=== PATIENT | female | born 1995 | race Caucasian/White ===

== ENCOUNTER → 2019-02-07 | Outpatient (CLI) | payer BC, OTHER ==
--- NOTE | 2019-02-07 16:39 | Diagnostic Imaging Report ---
INDICATION: Anatomical survey. TECHNIQUE: Multiple real-time grayscale images were obtained over the gravid uterus. COMPARISON: None FINDINGS: There is a single living intrauterine in a breech presentation. Placenta is anterior. There is no previa. There is normal volume of amniotic fluid. The biometry correlates with gestational age of 20 weeks 1 day. Anatomical survey is unremarkable. This includes a four-chamber heart and three-vessel cord. Heart rate is 146 BPM and regular. Maternal adnexa is unremarkable. Biometrical measurements are as follows: Biparietal 4.63 cm, age 20 weeks 0 days. Head circumference 17.44 cm, age 20 weeks 0 days. Abdominal circumference 15.09 cm, age 20 weeks 3 days. Femur length 3.20 cm, age 20 weeks 0 days. Sonographic estimate age: 20 weeks 1 days. Sonographic estimated date of delivery: 06/26/2019. Estimated Weight: 334 gm (+/- 49 gm). LMP percentile: 45%. heart rate: 146 beats per minute. number: 1 of 1. IMPRESSION: Estimated weight is 334 g. Single living intrauterine with sonographically estimated gestational age of 20 weeks 1 day and estimated date of confinement of June 26, 2019. Dictated by: Dictated on workstation # [id number]
== END ==
LOC: RAD 14:34
PROVIDERS: ATTEND Nurse Practitioner Women's Health
DX: Z34.92 Encounter for supervision of normal pregnancy, unspecified, second trimester (principal); Z3A.20 20 weeks gestation of pregnancy
CPT/HCPCS: 76805

== ENCOUNTER 2019-06-21 09:37 | Inpatient (IN) | payer BC ==
[~2019-06-21] VITALS: Ht 157 cm; Wt 72.1 kg
[2019-06-21] VITALS (29 sets, daily range): BP systolic 88–139; BP diastolic 52–85
[2019-06-21] MEDS ORDERED: AMPICILLIN FOR IV USE 2,000 MG in WATER (STERILE) FOR INJECTION 14.8 ML IV SCH (09:53)
[2019-06-21] MEDS ORDERED: MINERAL OIL CONCENTRATE 99.9% 15 ML UDC TOP PRN (10:00)
--- OUTSIDE RECORDS SUMMARY | 2019-06-21 10:17 | XMS REPORT | Continuity of Care Document ---
Author Organization Unknown Address Unknown Phone Unavailable Allergies There is no data. Medications There is no data. Problems Date Dx Coded Attending Type Code Diagnosis Diagnosed By 02/28/2019 DAYA BURK APRN Ot Z34.92 ENCNTR FOR SUPRVSN OF NORMAL PREG, UNSP, 02/28/2019 DAYA BURK APRN Ot Z3A.20 20 WEEKS GESTATION OF Procedures There is no data. Results There is no data. Encounters ACCT No. Visit Date/Time Discharge Status Pt. Type Provider Facility Loc./Unit Complaint [id number] 02/07/2019 14:34:00 019 23:59:59 CLS Outpatient DAYA BURK APRN Via [facility] RAD
[2019-06-21] MEDS: D5 LR IV SOLUTION 1,000 ML IV SCH ×2 (10:21→20:56)
[2019-06-21 10:35] LABS: BASOPHILS % (AUTO) 0 % (0-10); EOSINOPHILS # (AUTO) 0.1 10^3/uL (0.0-0.3); EOSINOPHILS % (AUTO) 1 % (0-10); HEMATOCRIT 33 % (35-52); HEMOGLOBIN 11.4 G/DL (11.5-16.0); LYMPHOCYTES # (AUTO) 1.6 X 10^3 (1.0-4.0); LYMPHOCYTES % (AUTO) 19 % (12-44); MEAN CORPUSCULAR HEMOGLOBIN 31 PG (25-34); MEAN CORPUSCULAR HGB CONC 34 G/DL (32-36); MEAN CORPUSCULAR VOLUME 91 FL (80-99); MEAN PLATELET VOLUME 10.4 FL (7.4-10.4); MONOCYTES # (AUTO) 0.6 X 10^3 (0.0-1.0); MONOCYTES % (AUTO) 7 % (0-12); NEUTROPHILS # (AUTO) 6.3 X 10^3 (1.8-7.8); NEUTROPHILS % (AUTO) 72 % (42-75); PLATELET COUNT 287 10^3/uL (130-400); RED CELL DISTRIBUTION WIDTH 14.3 % (10.0-14.5); WHITE BLOOD COUNT 8.7 10^3/uL (4.3-11.0)
--- NOTE | 2019-06-21 10:40 | NUR ---
report received from SHILPA Carroll. care assumed of pt.
--- NOTE | 2019-06-21 11:07 | NUR ---
admission paperwork completed.
--- NOTE | 2019-06-21 11:38 | History & Physical-OB ---
OB - Chief Complaint & HPI Date/Time Date of Admission: Date of Admission: Jun 21, 2019 at 09:37 Date seen by a Provider: Jun 21, 2019 Time Seen by a Provider: 09:00 Chief Complaint/History OB-Reason for Admission/Chief: Onset of Labor Hx : 1 Hx Para: 0 Expected Date of Delivery: Jun 26, 2019 Gestational Age in Weeks: 39 Gestational Age in Days: 2 Other reason for admission: Patient found to be 5 cm dilatation in the office, sent over for delivery and antibiotic mikey due to GBS + Admission Nurse Assessment Rev: Yes History of Labs GBS pos Allergies and Home Medications Allergies Coded Allergies: No Known Drug Allergies (Unverified , 06/21/19) Patient Home Medication List Home Medication List Reviewed: Yes OB - History Hx of Present Care: Yes Ultrasounds: Normal mid trimester US Obstetrical Complications: None Medical Complications: None Patient Past Medical History n/a OB - Admission Exam Physical Exam Vitals: Vital Signs 06/21/19 06/21/19 10:10 10:32 Temp 36.6 Pulse 75 Resp 16 B/P (MAP) 121/74 (90) Pulse Ox 99 O2 Delivery Room Air HEENT: NCAT Heart: Rhythm Normal Lungs: Clear Abdomen: Gravid Extremities: Normal Reflexes: Normal Cervical Dilatation: 5cm Effacement: 75% Station: 0 Membranes: Intact Heart Rate: 130's Accelerations: Accelerations Present Decelerations: No Decelerations Short Term Variability: Present Supervisor [place] Variability: Average (6-25) Contractions on Admission: 6-10 Minutes Apart Labs Laboratory Tests Test 06/21/19 10:20 Range/Units White Blood Count 8.7 4.3-11.0 10^3/uL Red Blood Count 3.67 L 4.35-5.85 10^6/uL Hemoglobin 11.4 L 11.5-16.0 G/DL Hematocrit 33 L 35-52 % Mean Corpuscular Volume 91 80-99 FL Mean Corpuscular Hemoglobin 31 25-34 PG Mean Corpuscular Hemoglobin Concent 34 32-36 G/DL Red Cell Distribution Width 14.3 10.0-14.5 % Platelet Count 287 130-400 10^3/uL Mean Platelet Volume 10.4 7.4-10.4 FL Neutrophils (%) (Auto) 72 42-75 % Lymphocytes (%) (Auto) 19 12-44 % Monocytes (%) (Auto) 7 0-12 % Eosinophils (%) (Auto) 1 0-10 % Basophils (%) (Auto) 0 0-10 % Neutrophils # (Auto) 6.3 1.8-7.8 X 10^3 Lymphocytes # (Auto) 1.6 1.0-4.0 X 10^3 Monocytes # (Auto) 0.6 0.0-1.0 X 10^3 Eosinophils # (Auto) 0.1 0.0-0.3 10^3/uL Basophils # (Auto) 0.0 0.0-0.1 10^3/uL OB - Assessment/Plan/Diagnosis Assessment Assessment: active labor, group B positive strep Admission Dx 24 yop @ 39 weeks GBS pos Admission Status: Inpatient Order (span 2 midnights) Reason for Inpatient Admission: Labor at term Plan Plan: Expectant Management JAD CARL DO Jun 21, 2019 11:38
[2019-06-21] MEDS ORDERED: CATHETER FLUSH 10 ML SYR IV SCH ×2 (14:00→22:00)
[2019-06-21] MEDS: AMPICILLIN FOR IV USE 1,000 MG in WATER (STERILE) FOR INJECTION 7.4 ML IV SCH ×2 (14:25→20:56)
--- NOTE | 2019-06-21 16:33 | NUR ---
called to check on pt's status. update given. pitocin orders received.
[2019-06-21] MEDS ORDERED: OXYTOCIN PRE-MIX DRIP 500 ML IV SCH ×2 (16:42→19:41)
[2019-06-21] MEDS ORDERED: OXYTOCIN PRE-MIX DRIP 500 ML IV ONE (16:43)
--- NOTE | 2019-06-21 16:46 | NUR ---
called with SVE update. pt requesting pain medication- "something other than epidural". no new orders received.
[2019-06-21] MEDS ORDERED: LIDOCAINE/EPI 2% 1:200,00 (XYLOCAINE) 20 ML VIAL ONE (17:57)
[2019-06-21] MEDS ORDERED: LIDOCAINE 1% INJ 20 ML 20 ML VIAL ONE (18:07)
[2019-06-21] MEDS ORDERED: METHYLERGONOVINE 0.2 MG/ML (METHERGINE) AMP ONE (19:13)
--- NOTE | 2019-06-21 19:16 | NUR ---
Placenta delivered and Dr Stewart doing fundal massage, lochia moderate to heavy and order for methergine IM. Methergine given in left thigh at 1920. Eleazar moderate and completed at this time. RML repaired and well approximated. Pericare completed and bed put back together.
[2019-06-21] MEDS ORDERED: BENZOCAINE/MENTHOL (DERMOPLAST) 60 ML CAN TP ONE (19:35)
[2019-06-21] MEDS ORDERED: WITCH HAZEL(TUCKS) 40 EA JAR ONE (19:35)
[2019-06-21] MEDS ORDERED: IBUPROFEN 600 MG (MOTRIN) TAB PO ONE (19:35)
[2019-06-21] MEDS ORDERED: DIBUCAINE (NUPERCAINAL) 1% OINT 30 GM TOP PRN (19:45)
[2019-06-21] MEDS ORDERED: TETANUS,DIPTH,PERTUSS P/F (BOOSTRIX) 0.5 ML VIAL IM ONE (19:45)
[2019-06-21] MEDS ORDERED: HYDROcodone/APAP 5 MG/325 MG (LORTAB) TAB PO PRN (19:45)
[2019-06-21] MEDS ORDERED: MEASLES,MUMPS,RUBELLA 1 EA INJ SQ ONE (19:45)
[2019-06-21] MEDS ORDERED: WITCH HAZEL(TUCKS) 40 EA JAR TOP PRN (19:45)
[2019-06-21] MEDS ORDERED: BENZOCAINE/MENTHOL (DERMOPLAST) 60 ML CAN TP PRN (19:45)
[2019-06-21] MEDS: IBUPROFEN 600 MG (MOTRIN) TAB PO SCH (19:45)
--- NOTE | 2019-06-21 19:50 | OB Labor & Delivery Record ---
L&D History Date of Service Date of Service: Jun 21, 2019 History Expected Date of Delivery: Jun 26, 2019 Gestational Age in Weeks: 39 Hx : 1 Hx Para: 0 Complications Events: Routine care Operative Indications (Cesarea: N/A-Vaginal Delivery Intrapartal Events: Ineffective Pushing L&D Stage1 Stage One Onset of Labor - Date: Jun 21, 2019 Monitors and Tracing Monitor Mode: External Heart Rate: 120 Monitor Accelerations: Uniform Monitor Decelerations: None Station: 0 Retirement Variability: Average (6-10) Short Term Variability: Present Presentation: Vertex Vital Signs VS - Last 72 Hours, by Label 06/21/19 06/21/19 06/21/19 06/21/19 10:10 10:32 10:50 12:20 Temp 36.6 36.6 36.5 Pulse 75 75 87 90 Resp 16 16 18 18 B/P (MAP) 121/74 (90) 139/66 (90) 119/55 (76) Pulse Ox 99 99 O2 Delivery Room Air Room Air Room Air 06/21/19 06/21/19 06/21/19 06/21/19 12:45 13:15 13:45 14:15 Pulse 66 102 95 Resp 18 18 18 18 B/P (MAP) 128/66 (86) 110/56 (74) 124/59 (80) 114/56 (75) O2 Delivery Room Air Room Air Room Air Room Air 06/21/19 06/21/19 06/21/19 06/21/19 14:30 14:45 15:00 15:15 Temp 36.6 Pulse 96 93 96 90 Resp 18 18 18 18 B/P (MAP) 88/61 (70) 124/58 (80) 112/56 (74) 121/59 (79) O2 Delivery Room Air Room Air Room Air Room Air 06/21/19 06/21/19 06/21/19 06/21/19 15:30 15:45 16:00 16:15 Pulse 96 85 73 Resp 18 18 18 18 B/P (MAP) 112/56 (74) 112/71 (85) 123/58 (79) O2 Delivery Room Air Room Air Room Air Room Air 06/21/19 06/21/19 06/21/19 06/21/19 16:30 16:45 16:52 17:10 Pulse 70 68 68 Resp 18 18 18 18 B/P (MAP) 124/85 (98) 114/60 (78) 115/59 (77) O2 Delivery Room Air Room Air Rupture of Membranes Spontaneous Ruture of Membrane: No Amniotic Membrane Rupture Time: 1512 Amniotic Membrane Fluid Desc.: Clear Vaginal Bleeding Description: Normal Show Progress/Notes Low dose pitocin protocol used, patient progressed to complete and +2 station with no analgesia L&D Stage2 Stage Two Stage II Date: Jun 21, 2019 Monitors and Tracing Monitor Mode: External Heart Rate: 120 Monitor Accelerations: None Monitor Decelerations: Variable Front Loader Residential Driver Variability: Average (6-10) Short Term Variability: Present Position: Right Occiput Anterior Presentation: Vertex Signs of Distress by FHT Signs of Distress Patient pushed to +2-3 station, there were repetitive fhr decelerations to 60s with contractions/pushing. O2 given to patient, counciled about vacuum extraction to expedite delivery. Cord Descript/Complications Cord Vessel Description: 3 Vessels Delivery Type Infant Delivery Method: Low Vacuum Extraction Anterior Shoulder: Right Episiotomy/Perineal Laceration Laceraction(s)/Extensions: Yes Episiotomy Description: Right Mediolateral Degree (describe repair) Kiwi vaccum extractor placed at flexion point, and with next maternal push 550 mmHg appled pop off x 1, but then delivery of RML. Repair done using 3-0 and 2- 0 rapide in usual fashion. Condition of Infant Delivery 1 minute Comment: 8 5 minute Comment: 9 Condition of Infant Condition of : Living Exam: No Observed Abnormalities Resuscitation Resuscitation: N/A - Spontaneous Resp L&D Stage3 Stage Three Stage III Date: Jun 21, 2019 Pictocin Pitocin Administration mu/min: 2 Pitocin ml/hr: 2 Pitocin Administration Comment: 30 pitocin started wide open at delivery of placenta Placenta Delivery Placenta Delivery: Spontaneous Delivery Summary Summary Estimated blood loss (mL): 350 Attending at delivery: Jad Carl DO Condition of Delivery Examined: Cervix Examined, Uterus Explored Post Hemorrhage: No Intervention Required 0.2 mg methergine ordered IM due to continued vaginal bleeding, this soon resolved after Condition of Mother stable Condition of Infant (s) stable JAD CARL DO Jun 21, 2019 19:50
--- NOTE | 2019-06-21 20:40 | NUR ---
Pt up to void and pericare completed. VS obtained and pt moving well. Lochia moderate with one clot noted. Fundus 3 below and firm.
[2019-06-21] MEDS ORDERED: METHYLERGONOVINE 0.2 MG/ML (METHERGINE) AMP IM ONE (20:45)
--- NOTE | 2019-06-21 20:45 | NUR ---
ff midline u/2, no bleeding noted, Kemmerer tray provided, further needs denied.
[2019-06-22 00:10] VITALS: BP 112/52
[2019-06-22 03:35] VITALS: BP 108/67
[2019-06-22] MEDS: IBUPROFEN 600 MG (MOTRIN) TAB PO SCH ×4 (03:35→21:15)
[2019-06-22 05:26] LABS: BASOPHILS % (AUTO) 0 % (0-10); EOSINOPHILS % (AUTO) 0 % (0-10); HEMATOCRIT 27 % (35-52); HEMOGLOBIN 9.3 G/DL (11.5-16.0); LYMPHOCYTES # (AUTO) 1.8 X 10^3 (1.0-4.0); LYMPHOCYTES % (AUTO) 13 % (12-44); MEAN CORPUSCULAR HEMOGLOBIN 31 PG (25-34); MEAN CORPUSCULAR HGB CONC 34 G/DL (32-36); MEAN CORPUSCULAR VOLUME 90 FL (80-99); MEAN PLATELET VOLUME 9.9 FL (7.4-10.4); MONOCYTES # (AUTO) 1.2 X 10^3 (0.0-1.0); MONOCYTES % (AUTO) 8 % (0-12); NEUTROPHILS # (AUTO) 11.2 X 10^3 (1.8-7.8); NEUTROPHILS % (AUTO) 79 % (42-75); PLATELET COUNT 240 10^3/uL (130-400); RED CELL DISTRIBUTION WIDTH 14.5 % (10.0-14.5); WHITE BLOOD COUNT 14.2 10^3/uL (4.3-11.0)
--- NOTE | 2019-06-22 08:18 | Postpartum Progress Note ---
Note Note Day # 1 Subjective: Patient is without complaints. Ambulating, voiding. Tolerating a regular diet without nausea or vomiting. Normal lochia. Pain is well controlled with oral pain medications. Objective: Physical Exam: General - Alert and oriented, no apparent distress Abdomen - Soft, appropriately tender to palpation, non-distended, fundus firm at umbilicus Extremities - no edema, negative Shaila's bilaterally Assessment: PPD 1 VAVD Acute blood loss anemia Plan: Routine care. Encourage breast feeding. Encourage ambulation. Ferrous sulfate supplementation. Plan for discharge tomorrow Vitals - Labs Vital Signs - I&O Vital Signs Date Time Temp Pulse Resp B/P (MAP) Pulse Ox O2 Delivery O2 Flow Rate FiO2 06/22/19 03:35 37.0 69 18 108/67 (81) 97 Room Air 06/22/19 00:10 37.2 75 18 112/52 (72) 98 Room Air 06/21/19 20:30 36.8 85 18 104/56 (72) Room Air 06/21/19 20:10 96 18 112/57 (75) Room Air 06/21/19 19:23 101 18 106/55 (72) Room Air 06/21/19 19:08 37.0 104 18 109/56 (73) Room Air 06/21/19 18:55 113 18 126/60 (82) Room Air 06/21/19 18:40 139 18 127/82 (97) Room Air 06/21/19 18:25 104 18 137/82 (100) Room Air 06/21/19 18:13 Non Rebreather 15.00 06/21/19 18:10 78 18 112/52 (72) Room Air 06/21/19 17:55 85 18 121/60 (80) Room Air 06/21/19 17:40 64 18 114/58 (76) Room Air 06/21/19 17:25 72 18 119/83 (95) Room Air 06/21/19 17:10 68 18 115/59 (77) 06/21/19 16:52 68 18 114/60 (78) 06/21/19 16:45 70 18 124/85 (98) Room Air 06/21/19 16:30 18 Room Air 06/21/19 16:15 73 18 123/58 (79) Room Air 06/21/19 16:00 18 Room Air 06/21/19 15:45 85 18 112/71 (85) Room Air 06/21/19 15:30 96 18 112/56 (74) Room Air 06/21/19 15:15 90 18 121/59 (79) Room Air 06/21/19 15:00 96 18 112/56 (74) Room Air 06/21/19 14:45 93 18 124/58 (80) Room Air 06/21/19 14:30 36.6 96 18 88/61 (70) Room Air 06/21/19 14:15 95 18 114/56 (75) Room Air 06/21/19 13:45 102 18 124/59 (80) Room Air 06/21/19 13:15 18 110/56 (74) Room Air 06/21/19 12:45 66 18 128/66 (86) Room Air 06/21/19 12:20 90 18 119/55 (76) Room Air 06/21/19 10:50 36.5 87 18 139/66 (90) 06/21/19 10:32 36.6 75 16 99 Room Air 06/21/19 10:10 36.6 75 16 121/74 (90) 99 Room Air I & O 06/22/19 07:00 Intake Total 2000 ml Balance 2000 ml Labs Laboratory Tests 06/21/19 10:20: White Blood Count 8.7, Red Blood Count 3.67L, Hemoglobin 11.4L, Hematocrit 33L, Mean Corpuscular Volume 91, Mean Corpuscular Hemoglobin 31, Mean Corpuscular Hemoglobin Concent 34, Red Cell Distribution Width 14.3, Platelet Count 287, Mean Platelet Volume 10.4, Neutrophils (%) (Auto) 72, Lymphocytes (%) (Auto) 19, Monocytes (%) (Auto) 7, Eosinophils (%) (Auto) 1, Basophils (%) (Auto) 0, Neutro phils # (Auto) 6.3, Lymphocytes # (Auto) 1.6, Monocytes # (Auto) 0.6, Eosinophils # (Auto) 0.1, Basophils # (Auto) 0.0 06/22/19 05:15: White Blood Count 14.2H, Red Blood Count 3.02L, Hemoglobin 9.3L, Hematocrit 27L, Mean Corpuscular Volume 90, Mean Corpuscular Hemoglobin 31, Mean Corpuscular Hemoglobin Concent 34, Red Cell Distribution Width 14.5, Platelet Count 240, Mean Platelet Volume 9.9, Neutrophils (%) (Auto) 79H, Lymphocytes (%) (Auto) 13, Monocytes (%) (Auto) 8, Eosinophils (%) (Auto) 0, Basophils (%) (Auto) 0, Neutrophils # (Auto) 11.2H, Lymphocytes # (Auto) 1.8, Monocytes # (Auto) 1.2H, Eosinophils # (Auto) 0.0, Basophils # (Auto) 0.0 JAD CARL DO Jun 22, 2019 08:18
--- NOTE | 2019-06-22 08:20 | Discharge Inst-Women's Service ---
Discharge Inst-Women's Serv Depart Medication/Instructions New, Converted or Re-Newed RX: RX on Chart Final Diagnosis PPD 2 VAVD Problems Reviewed?: Yes Consults/Follow Up Additional Follow Up: Yes Orders/Referrals Dr. Carl in 6 weeks Activity Activity: Activity as Tolerated Driving Instructions: No Driving for 1 Week NO SMOKING: NO SMOKING Nothing Inside Vagina: No Douching, No [place], No Tampons Diet Discharge Diet: No Restrictions Symptoms to Report to : Bleeding Excessive, Pain Increased, Fever Over 101 Degrees F, Vaginal Bleeding Increase, Questions/Concerns For Any Problems or Questions: Contact Your Physician JAD CARL DO Jun 22, 2019 08:20
[2019-06-22] MEDS ORDERED: BENZ78AE2 TP (08:22)
[2019-06-22] MEDS ORDERED: DCS100C PO (08:22)
[2019-06-22] MEDS ORDERED: DIBU30OI TOP (08:22)
[2019-06-22] MEDS ORDERED: HYDR-83 PO (08:22)
[2019-06-22] MEDS ORDERED: FERR325T18 PO (08:22)
[2019-06-22] MEDS ORDERED: IBUP-844 PO (08:22)
[2019-06-22] MEDS: DOCUSATE SODIUM 100 MG (COLACE) CAP PO SCH ×3 (09:00→21:14)
[2019-06-22] MEDS: FERROUS SULF 325 MG (IRON) TAB PO SCH (09:37)
[2019-06-22] MEDS: PRENATAL VITAMIN 1 EA TAB PO SCH (09:37)
[2019-06-22 09:42] VITALS: BP 96/53
[2019-06-22 13:02] VITALS: BP 108/54
[2019-06-22 15:51] VITALS: BP 105/54
--- NOTE | 2019-06-22 19:10 | NUR ---
Pt at this time.
--- NOTE | 2019-06-22 19:50 | NUR ---
Pt laying in bed, infant taken back to mother, plan of care reviewed with pt.
[2019-06-22 21:15] VITALS: BP 102/55
--- NOTE | 2019-06-23 00:03 | NUR ---
pt sitting up in bed awake holding , denies needs.
--- NOTE | 2019-06-23 00:30 | NUR ---
Call light answered, pt states cont to cry after feeding at breast and is wondering if infant is getting enough to eat. GAve info about babies second night and [facility]. Discussed with mother about supplementing with formula or doing sns feeding. Infant un-consolable in nsy, rn bottle fed infant 10ml of formula, was vigorously sucking formula, burped, tolerated well. Discussed sns feedings with mother to call for next feeding to start sns. Parents verbalized understanding and infant sleeping in open crib in room.
--- NOTE | 2019-06-23 01:57 | NUR ---
Assisted pt with SNS feeding.
[2019-06-23] MEDS: IBUPROFEN 600 MG (MOTRIN) TAB PO SCH ×2 (04:08→10:16)
[2019-06-23 04:13] VITALS: BP 96/49
[2019-06-23 08:34] VITALS: BP 106/54
[2019-06-23] MEDS: FERROUS SULF 325 MG (IRON) TAB PO SCH (08:35)
[2019-06-23] MEDS: PRENATAL VITAMIN 1 EA TAB PO SCH (08:35)
[2019-06-23] MEDS: DOCUSATE SODIUM 100 MG (COLACE) CAP PO SCH (08:35)
--- NOTE | 2019-06-23 09:13 | NUR ---
Tender care gel packs given for sore nipples. pt had already had lanolin at bedside using.
--- NOTE | 2019-06-23 09:20 | NUR ---
Dr Stewart to see patient.
--- NOTE | 2019-06-23 09:28 | Postpartum Progress Note ---
Note Note Day # 2 Subjective: Patient is without complaints. Ambulating, voiding. Tolerating a regular diet without nausea or vomiting. Normal lochia. Pain is well controlled with oral pain medications. Objective: Physical Exam: General - Alert and oriented, no apparent distress Abdomen - Soft, appropriately tender to palpation, non-distended, fundus firm at umbilicus Extremities - no edema, negative Shaila's bilaterally Assessment: PPD 2 VAVD Acute blood loss anemia Plan: Routine care. Encourage breast feeding. Encourage ambulation. Ferrous sulfate supplementation. Plan for discharge today Vitals - Labs Vital Signs - I&O Vital Signs Date Time Temp Pulse Resp B/P (MAP) Pulse Ox O2 Delivery O2 Flow Rate FiO2 06/23/19 08:34 36.7 80 16 106/54 (71) 97 Room Air 06/23/19 04:13 37.0 64 16 96/49 (65) Room Air 06/22/19 21:15 37.2 72 18 102/55 (71) Room Air 06/22/19 15:51 37.0 77 18 105/54 (71) 98 Room Air 06/22/19 13:02 36.8 74 16 108/54 (72) 97 Room Air 06/22/19 09:42 37.2 92 16 96/53 (67) 97 Room Air I & O 06/23/19 07:00 Intake Total 1200 ml Balance 1200 ml JAD CARL DO Jun 23, 2019 09:28
--- NOTE | 2019-06-23 10:15 | NUR ---
Discharge instructions explained, signed and copy to patient. prescriptions given and pt verbalized understanding of prescriptions. Denied questions.
[2019-06-23 11:05] VITALS: BP 106/54
--- NOTE | 2019-06-23 11:25 | NUR ---
Discharged to home. Ambulates downstairs accompanied by staff and . to private vehicle with belongings in hand.
== END 2019-06-23 11:25 | disposition home or self-care (01) | DRG 806 ==
LOC: LDRP 09:37
PROVIDERS: ADMIT Obstetrics & Gynecology; ATTEND Obstetrics & Gynecology
PROC: 10D07Z6 Extraction of Products of Conception, Vacuum, Via Natural or Artificial Opening (ICD-10-PCS; principal; 2019-06-21)
PROC: 0W8NXZZ Division of Female Perineum, External Approach (ICD-10-PCS; 2019-06-21)
DX: O99.824 Streptococcus B carrier state complicating childbirth (principal); O90.81 Anemia of the puerperium; D62 Acute posthemorrhagic anemia; Z37.0 Single live birth; Z3A.39 39 weeks gestation of pregnancy
CPT/HCPCS: 36415; 85025; 86850; 86900; 86901